=== PATIENT | male | born 1990 ===

== ENCOUNTER 2021-12-17 19:27 | Emergency (ER) | payer OTHER ==
[2021-12-17] MEDS ORDERED: ONDANSETRON 4 MG/2 ML VIAL ONE (19:42)
[2021-12-17] MEDS ORDERED: MEPERIDINE HCL 50 MG/ML ONE (19:42)
--- NOTE | 2021-12-17 20:28 | RAD REPORT ---
EXAM DESCRIPTION: CTThoracic Spine W/o Cont12/17/2021 8:15 pm CLINICAL HISTORY: Back injury status post trauma COMPARISON: None TECHNIQUE: Computed axial tomography of thoracic spine was obtained with coronal and sagittal recons truction. All CT scans are performed using dose optimization technique as appropriate and may include automated exposure control or mA/KV adjustment according to patient size. FINDINGS: No fracture is seen. No dislocation is noted. A high-grade central/foraminal stenosis not visualized IMPRESSION: Negative for a thoracic fracture If the patient has clinical symptoms to suggest spinal cord/spinal canal pathology then MRI would be recommended.
--- NOTE | 2021-12-17 20:35 | RAD REPORT ---
EXAM DESCRIPTION: CTSpine Lumbar Wo Con12/17/2021 8:15 pm CLINICAL HISTORY: Back pain status post trauma. COMPARISON: None TECHNIQUE: Computed axial tomography lumbar spine was obtained with coronal and sagittal reconstruct ion. All CT scans are performed using dose optimization technique as appropriate and may include automated exposure control or mA/KV adjustment according to patient size. FINDINGS: Spondylolysis L5. No acute fracture is seen. No dislocation is noted. 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 IMPRESSION: Spondylitis L5 No acute fracture is seen If patient continues have symptoms to suggest spinal canal pathology MRI would be recommended
--- NOTE | 2021-12-17 20:44 | ER ---
Nurse's Notes [facility] Name: Singh Stover Age: 30 yrs Sex: Male : 1990 Arrival Date: 12/17/2021 Time: 19:32 Bed 8 Private MD: Diagnosis: Strain of muscle, fascia and tendon of lower back;Muscle spasm of back Presentation: 12/17 19:34 Chief complaint: EMS states: pt was working out and felt a pop in his lower back along as6 with pain. Coronavirus screen: At this time, the client does not indicate any symptoms associated with coronavirus-19. Ebola Screen: No symptoms or risks identified at this time. Initial Sepsis Screen: Does the patient meet any 2 criteria? No. Patient's initial sepsis screen is negative. Does the patient have a suspected source of infection? No. Patient's initial sepsis screen is negative. Risk Assessment: Do you want to hurt yourself or someone else? Patient reports no desire to harm self or others. Onset of symptoms was December 17, 2021. Care prior to arrival: Placed on backboard. 19:34 Method Of Arrival: EMS: [facility] as6 19:34 Acuity: FOREST 3 as6 Historical: - Allergies: 19:36 No Known Allergies; as6 - Home Meds: 19:36 lisinopril 5 mg Oral tab 1 tab once daily [Active]; as6 - PMHx: 19:36 Hypertensive disorder; as6 - PSHx: 19:36 Appendectomy; as6 - Immunization history:: Client reports receiving the 2nd dose of the Covid vaccine. - Social history:: Smoking status: Patient denies any tobacco usage or history of. - Family history:: not pertinent. - Hospitalizations: : No recent hospitalization is reported. Screenin:36 Abuse screen: Denies threats or abuse. Denies injuries from another. Nutritional as6 screening: No deficits noted. Tuberculosis screening: No symptoms or risk factors identified. Fall Risk None identified. Assessment: 19:35 General: Appears in no apparent distress. uncomfortable, Behavior is calm, cooperative. as6 19:35 Pain: Complains of pain in back Quality of pain is described as sharp, shooting, as6 stabbing. Neuro: Level of Consciousness is awake, alert, obeys commands, Oriented to person, place, time, situation. Cardiovascular: Capillary refill < 3 seconds JVD is absent. Respiratory: Respiratory effort is even, unlabored, Respiratory pattern is regular, symmetrical. 21:10 Reassessment: patient waiting for his ride with snf officers in room. ke1 Vital Signs: 19:34 BP 119 / 82; Pulse 93; Resp 18 S; Temp 98.1(O); Pulse Ox 98% on R/A; Weight 122.47 kg as6 (R); Height 5 ft. 9 in. (175.26 cm) (R); Pain 10/10; 21:17 BP 150 / 96; Pulse 95; Resp 18; Pulse Ox 99% on R/A; ke1 19:34 Body Mass Index 39.87 (122.47 kg, 175.26 cm) as6 ED Course: 19:32 Patient arrived in ED. rn 19:32 Margarito Galdamez MD is Attending Physician. rn 19:34 Robel Ureña RN is Primary Nurse. as6 19:35 Triage completed. as6 19:36 Arm band placed on. as6 19:36 Bed in low position. Call light in reach. Side rails up X2. Security at bedside. Pulse as6 ox on. NIBP on. 19:50 Inserted saline lock: 20 gauge in right antecubital area, using aseptic technique. as6 20:17 CT Thoracic Spine Wo Cont In Process Unspecified. EDMS 20:17 CT Lumbar Spine Wo Con In Process Unspecified. EDMS 21:18 No provider procedures requiring assistance completed. IV discontinued. ke1 Administered Medications: 19:54 Drug: Demerol (meperidine) 50 mg Route: IVP; Site: right antecubital; as6 21:17 Follow up: Response: Marked relief of symptoms ke1 19:54 Drug: Zofran (Ondansetron) 4 mg Route: IVP; Site: right antecubital; as6 21:17 Follow up: Response: Marked relief of symptoms ke1 21:17 Drug: Flexeril (cyclobenzaprine) 10 mg Route: PO; ke1 21:17 Follow up: Response: Medication administered at discharge. ke1 Outcome: 20:44 Discharge ordered by . rn 21:18 Discharged to Law Enforcement ke1 21:18 Condition: good 21:18 Discharge instructions given to environmental conservation officer 21:31 Patient left the ED. ke1 Signatures: Dispatcher [employer] EDMargarito Donnelly MD MD rn Slawson, Ashby, RN RN as6 Hilario Ramos RN RN ke1 Corrections: (The following items were deleted from the chart) 21:30 Reassessment: patient waiting for his ride with snf officers in room 1 ke1
--- NOTE | 2021-12-17 20:44 | EDPHYS ---
Physician Documentation [facility] Name: Singh Stover Age: 30 yrs Sex: Male : 1990 Arrival Date: 12/17/2021 Time: 19:32 Bed 8 Private MD: ED Physician Margarito Galdamez HPI: 12/17 20:39 This 30 yrs old Male presents to ER via EMS with complaints of back pain. rn 20:39 The patient presents with pain that is acute. The symptoms are located in the low back. rn Onset: The symptoms/episode began/occurred just prior to arrival. The pain does not radiate. Associated signs and symptoms: Pertinent negatives: abdominal pain, chest pain, fever, incontinence, nausea, numbness, tingling, urinary retention, vomiting, weakness. Modifying factors: The patient symptoms are alleviated by remaining still, the patient symptoms are aggravated by any movement. Severity of symptoms: At their worst the symptoms were moderate, in the emergency department the symptoms are unchanged. The patient has not experienced similar symptoms in the past. The patient has not recently seen a physician. Pt reports lifting weights, stood up and felt "a pop", felt pain to middle lower back, no radiation. No weakness or numbness. No bowel/bladder issues. Denies weakness or numbness of lower extremities.. Historical: - Allergies: 19:36 No Known Allergies; as6 - Home Meds: 19:36 lisinopril 5 mg Oral tab 1 tab once daily [Active]; as6 - PMHx: 19:36 Hypertensive disorder; as6 - PSHx: 19:36 Appendectomy; as6 - Immunization history:: Client reports receiving the 2nd dose of the Covid vaccine. - Social history:: Smoking status: Patient denies any tobacco usage or history of. - Family history:: not pertinent. - Hospitalizations: : No recent hospitalization is reported. ROS: 20:41 Constitutional: Negative for fever, chills, and weight loss, Neck: Negative for injury, rn pain, and swelling, Cardiovascular: Negative for chest pain, palpitations, and edema, Respiratory: Negative for shortness of breath, cough, wheezing, and pleuritic chest pain, Abdomen/GI: Negative for abdominal pain, nausea, vomiting, diarrhea, and constipation, Back: + lower back pain : Negative for injury, bleeding, discharge, and swelling, MS/Extremity: Negative for injury and deformity, Neuro: Negative for headache, weakness, numbness, tingling, and seizure. Exam: 20:41 Constitutional: Overweight male, appears uncomfortable with movement. Head/Face: rn Normocephalic, atraumatic. Eyes: Periorbital areas with no swelling, redness, or edema. Neck: Trachea midline, no masses palpated, and no cervical lymphadenopathy. Supple, full range of motion without nuchal rigidity, or vertebral point tenderness. No Meningismus. Cardiovascular: Regular rate and rhythm. No pulse deficits. Respiratory: No increased work of breathing, no retractions or nasal flaring. Abdomen/GI: soft, non-tender Back: No spinal tenderness. + mild perilimbar tenderness without skin changes, no ecchymosis Skin: Warm, dry MS/ Extremity: Pulses equal, no cyanosis. Neurovascular intact. Full, normal range of motion. Equal circumference. Neuro: Awake and alert, GCS 15, oriented to person, place, time, and situation. Motor strength 5/5 in all extremities. Sensory grossly intact. Vital Signs: 19:34 BP 119 / 82; Pulse 93; Resp 18 S; Temp 98.1(O); Pulse Ox 98% on R/A; Weight 122.47 kg as6 (R); Height 5 ft. 9 in. (175.26 cm) (R); Pain 10/10; 21:17 BP 150 / 96; Pulse 95; Resp 18; Pulse Ox 99% on R/A; ke1 19:34 Body Mass Index 39.87 (122.47 kg, 175.26 cm) as6 MDM: 19:32 Patient medically screened. rn 20:41 Differential diagnosis: arthritis, Ligament Injury ruptured disc, spinal injury, rn sprain, vertebral fracture. Data reviewed: vital signs, nurses notes, radiologic studies, CT scan, and as a result, I will discharge patient. Counseling: I had a detailed discussion with the patient and/or guardian regarding: the historical points, exam findings, and any diagnostic results supporting the discharge/admit diagnosis, radiology results, the need for outpatient follow up, to return to the emergency department if symptoms worsen or persist or if there are any questions or concerns that arise at home. Response to treatment: the patient's symptoms have mildly improved after treatment, and as a result, I will discharge patient. Special discussion: I discussed with the patient/guardian in detail that at this point there is no indication for admission to the hospital. It is understood, however, that if the symptoms persist or worsen the patient needs to return immediately for re-evaluation. 20:41 ED course: NO acute findings on ct thoracic spine and ct lumbar spine. Pt with normal rn neuro exam, no signs of cord compression.. 12/17 19:33 Order name: CT Thoracic Spine Wo Cont; Complete Time: 20:39 rn 12/17 19:33 Order name: CT Lumbar Spine Wo Con; Complete Time: 20:39 rn 12/17 19:33 Order name: IV Start; Complete Time: 19:54 rn Administered Medications: 19:54 Drug: Demerol (meperidine) 50 mg Route: IVP; Site: right antecubital; as6 21:17 Follow up: Response: Marked relief of symptoms ke1 19:54 Drug: Zofran (Ondansetron) 4 mg Route: IVP; Site: right antecubital; as6 21:17 Follow up: Response: Marked relief of symptoms ke1 21:17 Drug: Flexeril (cyclobenzaprine) 10 mg Route: PO; ke1 21:17 Follow up: Response: Medication administered at discharge. ke1 Disposition Summary: 12/17/21 20:44 Discharge Ordered Location: Home rn Problem: new rn Symptoms: have improved rn Condition: Stable rn Diagnosis - Strain of muscle, fascia and tendon of lower back rn - Muscle spasm of back rn Followup: rn - With: Private Physician - When: As needed - Reason: Recheck today's complaints, Re-evaluation by your physician Discharge Instructions: - Discharge Summary Sheet rn - Acute Back Pain, Adult rn - Muscle Cramps and Spasms rn - Back Injury Prevention, [id number] rn - Back Exercises, [id number] rn - Back Exercises rn Forms: - Medication Reconciliation Form rn - Thank You Letter rn - Antibiotic learning and development manager - Prescription Opioid Use rn Prescriptions: - Cyclobenzaprine 10 mg Oral Tablet - take 1 tablet by ORAL route every 8 hours As needed; 15 tablet; Refills: 0, rn Product Selection Permitted Signatures: Dispatcher [employer] EDMS Margarito Galdamez MD MD rn Slawson, Ashby, RN RN as6 Ebrottie, Kouassi, RN RN ke1
[2021-12-17] MEDS ORDERED: CYCLOBENZAPRINE 10 MG TAB ONE (21:11)
[2021-12-17 21:44] VITALS: TEMP 98.1
[2021-12-17 21:45] VITALS: BP 150/96; O2SAT 99
== END 2021-12-17 21:31 | disposition home or self-care (01) ==
LOC: ER 19:27
DX: S39.012A Strain of muscle, fascia and tendon of lower back, initial encounter (principal); M62.830 Muscle spasm of back; Y93.B3 Activity, free weights; Y92.9 Unspecified place or not applicable; I10 Essential (primary) hypertension
CPT/HCPCS: 72131; 72128; 96375; 96374; 99285; J2405; J2175